=== PATIENT | female | born 1975 | race Caucasian/White ===

== ENCOUNTER 2016-08-22 11:43 | Emergency (ER) | payer OTHER ==
[2016-08-22 12:57] LABS: BILIRUBIN NEGATIVE (NEGATIVE); BLOOD TRACE-LYSED Ery/uL (NEGATIVE); CLARITY CLEAR (CLEAR); COLOR YELLOW (YELLOW); GLUCOSE (U) NORMAL (NORMAL); KETONE (U) NEGATIVE (NEGATIVE); LEUKOCYTES NEGATIVE Leu/uL (NEGATIVE); NITRITE NEGATIVE (NEGATIVE); PROTEIN NEGATIVE (NEGATIVE); SPECIFIC GRAVITY 1.015 (1.001-1.030); UROBILINOGEN 0.2 mg/dL (0.2-1.0); pH 6.5 (5.0-9.0)
[2016-08-22 13:11] LABS: BACTERIA 2+
[2016-08-22 13:22] LABS: BASOPHIL 0.6 % (0-2); EOSINOPHIL 0.4 % (0-5); HCT 38.1 % (37.0-47.0); HGB 13.3 g/dl (12.5-16.0); LYMPHOCYTE 31.2 % (15-48); MCH 30.6 pg (25.0-31.0); MCHC 34.9 g/dL (32.0-36.0); MCV 87.6 fL (78.0-100.0); MONOCYTE 6.3 % (0-12); MPV 9.4 fL (6.0-9.5); NEUTROPHIL 61.5 % (41-80); PLT 290 K/uL (150-400); RBC 4.35 M/uL (4.20-5.40); RDW 12.9 % (11.5-14.0); WBC 8.4 K/uL (4.0-10.5)
[2016-08-22 13:31] LABS: ALBUMIN 3.8 g/dL (3.5-5.0); BILIRUBIN - TOTAL 0.4 mg/dL (0.1-1.0); CREATININE 0.7 mg/dL (0.5-1.0); GLOBULIN (CALCULATION) 3.1 g/dL (2.2-4.2); POTASSIUM 3.7 mmol/L (3.5-5.1); TOTAL PROTEIN 6.9 g/dL (6.4-8.3)
== END 2016-08-22 14:10 | disposition home or self-care (01) ==
LOC: FER 11:43
PROVIDERS: Emergency Medicine
DX: K29.70 Gastritis, unspecified, without bleeding (principal); N85.2 Hypertrophy of uterus; Z87.442 Personal history of urinary calculi; Z87.42 Personal history of other diseases of the female genital tract; Z90.89 Acquired absence of other organs; Z98.51 Tubal ligation status
CPT/HCPCS: 36415; 80053; 81001; 83690; 85025; C9113; J1885; J2405

== ENCOUNTER 2016-08-31 15:45 | Emergency (ER) | payer OTHER ==
[2016-08-31 16:21] LABS: BASOPHIL 0.3 % (0-2); EOSINOPHIL 0.3 % (0-5); HCT 40.6 % (37.0-47.0); LYMPHOCYTE 33.4 % (15-48); MCH 30.6 pg (25.0-31.0); MCHC 34.5 g/dL (32.0-36.0); MCV 88.6 fL (78.0-100.0); MONOCYTE 11.4 % (0-12); MPV 9.8 fL (6.0-9.5); NEUTROPHIL 54.6 % (41-80); PLT 289 K/uL (150-400); RBC 4.58 M/uL (4.20-5.40); WBC 7.6 K/uL (4.0-10.5)
[2016-08-31 16:31] LABS: INR 0.97 (0.9-1.2); PROTHROMBIN TIME 12.5 SECONDS (11.7-14.0); PTT 27.8 SECONDS (23.2-31.4)
[2016-08-31 16:37] LABS: ALBUMIN 4.4 g/dL (3.5-5.0); BILIRUBIN - TOTAL 0.5 mg/dL (0.1-1.0); CREATININE 0.7 mg/dL (0.5-1.0); GLOBULIN (CALCULATION) 3.5 g/dL (2.2-4.2); MAGNESIUM 1.85 mg/dL (1.40-2.10); POTASSIUM 3.4 mmol/L (3.5-5.1); TOTAL PROTEIN 7.9 g/dL (6.4-8.3)
[2016-08-31 16:39] LABS: MYOGLOBIN 21 ng/mL (26-65); PRO-BNP 14 pg/mL (0-125); TROPONIN T < 0.010 ng/mL
== END 2016-08-31 17:43 | disposition home or self-care (01) ==
LOC: FER 15:45
PROVIDERS: Internal Medicine
DX: M94.0 Chondrocostal junction syndrome [Tietze] (principal); E87.6 Hypokalemia; F41.9 Anxiety disorder, unspecified
CPT/HCPCS: 36415; 71010; 80053; 82550; 82553; 83735; 83874; 83880; 84484; 85025; 85610; 85730; 93005